=== PATIENT | female | born 1990 | race Caucasian/White ===

== ENCOUNTER → 2024-05-24 | Outpatient (CLI) | payer OTHER, SELFPAY ==
[2024-05-24 12:32] LABS: Absolute Lymphocyte Count 1.03 X10^3/uL (0.83-4.51); Absolute Neutrophil Count 3.9 X10^3/uL (2.0-7.7); Basophil# 0.06 X10^3/uL; Basophil% 1.1 % (0-1); Eosinophils% 1.8 % (0-5); Hematocrit 41.9 % (37-47); Hemoglobin 13.5 g/dL (12.0-15.0); Lymphocyte # 1.03 X10^3/ul (0.83-4.51); Lymphocyte % 18.6 % (19-41); Mean Corp Hgb Conc 32.2 g/dL (32-36); Mean Corpuscular Hgb 29.3 pg (27.0-32.0); Mean Corpuscular Volume 90.9 fL (81-99); Mean Platelet Vol. 10.5 fl (6.2-12.0); Monocyte# 0.49 X10^3/uL; Monocyte% 8.8 % (0-10); NRBC Flagged by Analyzer 0 % (0-5); Neutrophil # 3.86 X10^3/uL (2.7-7.7); Neutrophil % 69.5 % (47-70); Platelet Count 317 K/mm3 (150-450); RBC Distribution Width CV 12.9 % (11.6-14.6); RBC Distribution Width SD 42.6 fl (35.1-43.9); Red Blood Count 4.61 M/mm3 (4.2-5.4); White Blood Count 5.6 K/mm3 (4.4-11.0)
[2024-05-24 13:26] LABS: AST(SGOT) 15 U/L (15-37); Alanine Aminotransfer ALT/SGPT 17 U/L (13-56); Albumin, Serum 4.1 g/dL (3.2-5.0); Alkaline Phosphatase 61 U/L (45-117); Anion Gap 5 (5-15); BUN 5 mg/dL (7-18); BUN/Creat Ratio 7.1 RATIO (10-20); Calcium,Total 9.6 mg/dL (8.5-10.1); Chloride 104 mmol/L (98-107); EST Glomerular Filtration Rate 102 mL/min (>60); Est Glom Filt Rate - Afr Amer 124 mL/min (>60); Globulin 4.2 g/dL (2.2-4.2); Glucose 92 mg/dL (74-106); Potassium 4.2 mmol/L (3.5-5.1); Protein, Total 8.3 g/dL (6.4-8.2); Sodium Level 137 mmol/L (136-145)
[2024-05-25 15:08] LABS: Endomysial Antibody IgA Negative (Negative); Immunoglobulin A 139 mg/dL (87-352); t-Transglutaminase IgA <2 U/mL (0-3)
== END | disposition home or self-care (01) ==
LOC: BIMLAB 09:41
PROVIDERS: PCP Internal Medicine; Referring Provider Internal Medicine; Visit Provider Internal Medicine
DX: R10.13 Epigastric pain (principal)
CPT/HCPCS: 36415; 80053; 82306; 82784; 83516; 84443; 85025; 86255

== ENCOUNTER → 2024-05-26 | Outpatient (CLI) | payer OTHER, SELFPAY ==
[2024-06-02 22:03] LABS: H. PYLORI STOOL AG Negative (Negative)
== END | disposition home or self-care (01) ==
LOC: LABSPEC 11:45
PROVIDERS: PCP Internal Medicine; Referring Provider Internal Medicine; Visit Provider Internal Medicine
DX: R10.13 Epigastric pain (principal)
CPT/HCPCS: 87338

== ENCOUNTER → 2024-07-22 | Outpatient (CLI) | payer OTHER, SELFPAY ==
--- NOTE | 2024-07-22 07:57 | ECHOD_ITS ---
Reason For Study: MURMUR Procedure This was a 2D Doppler, Color Flow transthoracic echocardiogram. Exam performed in department. Left Ventricle Normal LV size. The estimated ejection fraction is 65 %. No evidence for diastolic dysfunction. No regional wall motion abnormalities noted. Right Ventricle Normal RV size. Normal systolic function. Atria The left and right atria are normal. Bubble contrast study is positive for PFO. Mitral Valve There is no mitral valve stenosis. Trivial mitral valve insufficiency. Tricuspid Valve There is no tricuspid stenosis. Trivial tricuspid valve insufficiency. Unable to estimate RV systolic pressure due to insufficient tricuspid regurgitant envelope. Aortic Valve Trisinus/trileaflet aortic valve. There is no aortic stenosis. No aortic valve insufficiency. Pulmonic Valve There is no pulmonic valvular stenosis. No pulmonic valve insufficiency. Great Vessels Normal aortic root. Pericardium/Pleural No pericardial effusion. Medication 22 gauge I.V. with prn adaptor inserted into right arm. Performed a rapid injection of agitated mix of 9 cc saline and 1cc air to assess for atrial septal defect. MMode/2D Measurements & Calculations LVIDd: 5.0 cm IVSd: 0.75 cm LVOT diam: 2.0 cm LVIDs: 2.9 cm LVPWd: 0.75 cm RVDd: 3.4 cm FS: 41.0 % LVOT area: 3.0 cm2 asc Aorta Diam: 2.8 cm LAV(MOD-bp): 53.2 ml LVAd ap4: 28.6 cm2 LAV(MOD-bp) Indexed: 28.0 ml/m2 LVLd ap4: 7.9 cm LAV(MOD-sp2): 59.0 ml EDV(MOD-sp4): 85.0 ml LAV(MOD-sp4): 47.1 ml EDV(sp4-el): 88.1 ml LVAs ap4: 16.5 cm2 LVLs ap4: 6.6 cm ESV(MOD-sp4): 35.0 ml ESV(sp4-el): 35.0 ml EF(MOD-sp4): 58.8 % EF(sp4-el): 60.3 % LVAd ap2: 30.7 cm2 SV(MOD-sp4): 50.0 ml SV(MOD-sp2): 54.3 ml LVLd ap2: 8.2 cm SI(MOD-sp4): 26.3 ml/m2 SI(MOD-sp2): 28.6 ml/m2 EDV(MOD-sp2): 94.0 ml EDV(sp2-el): 96.9 ml LVAs ap2: 18.4 cm2 LVLs ap2: 7.4 cm ESV(MOD-sp2): 39.7 ml ESV(sp2-el): 38.9 ml EF(MOD-sp2): 57.8 % SV(sp4-el): 53.2 ml Ao sinus diam: 2.[address] Junction: 2.3 cm LA dimension(2D): 3.2 cm LA A4 area: 17.6 cm2 RA A4 area: 13.2 cm2 TAPSE: 1.7 cm Time Measurements MV dec time: 0.16 sec Doppler Measurements & Calculations MV E max spencer: 73.3 cm/sec Lat Peak E' Spencer: 18.0 cm/sec Med Peak E' Spencer: 14.0 cm/sec MV A max spencer: 61.0 cm/sec E/E' lat: 4.1 E/E' med: 5.2 MV E/A: 1.2 MV dec slope: 451.2 cm/sec2 Ao V2 max: 118.4 cm/sec LV V1 max: 104.3 cm/sec Ao max P.6 mmHg LV V1 max P.3 mmHg Ao V2 mean: 88.6 cm/sec LV V1 mean P.6 mmHg Ao mean P.5 mmHg LV V1 mean: 76.2 cm/sec Ao V2 VTI: 29.9 cm LV V1 VTI: 24.8 cm AV (velocity ratio): 0.83 TERESA(I,D): 2.5 cm2 TERESA(V,D): 2.6 cm2 SV(LVOT): 74.2 ml PA V2 max: 85.9 cm/sec TR max spencer: 181.8 cm/sec TR max P.2 mmHg ECHO/Echo Complete Interpretation Summary The estimated ejection fraction is 65 %. No evidence for diastolic dysfunction. Bubble contrast study is positive for PFO. Trivial mitral valve insufficiency. Ordering Physician: Maria De Jesus Hunt Referring Physician: Maria De Jesus Hunt Performed By: Jo Farooq, [facility]
== END | disposition home or self-care (01) ==
PROVIDERS: PCP Internal Medicine; Referring Provider Internal Medicine; Visit Provider Internal Medicine
DX: R01.1 Cardiac murmur, unspecified (principal); Z86.79 Personal history of other diseases of the circulatory system
CPT/HCPCS: 93306; A4216

== ENCOUNTER → 2024-11-11 | Outpatient (CLI) | payer OTHER, SELFPAY ==
[2024-11-16 16:09] LABS: HPV APTIMA, High Risk Negative (Negative)
== END | disposition home or self-care (01) ==
LOC: LABSPEC 08:59
PROVIDERS: PCP Internal Medicine; Referring Provider Advanced Practice Midwife; Visit Provider Advanced Practice Midwife
DX: Z12.4 Encounter for screening for malignant neoplasm of cervix (principal)
CPT/HCPCS: 87624; 88175; G0145

== ENCOUNTER → 2025-02-18 | Outpatient (CLI) | payer OTHER, SELFPAY | END | disposition home or self-care (01) | LOC: LABSPEC 11:01 | PROVIDERS: PCP Internal Medicine; Visit Provider Physician Assistant | DX: L60.2 Onychogryphosis (principal) | CPT/HCPCS: 87102; 87206 ==

== ENCOUNTER → 2025-03-10 | Outpatient (CLI) | payer OTHER, SELFPAY | END | disposition home or self-care (01) | LOC: LABSPEC 10:25 | PROVIDERS: PCP Internal Medicine; Referring Provider Nurse Practitioner Family; Visit Provider Nurse Practitioner Family | DX: R35.0 Frequency of micturition (principal) | CPT/HCPCS: 87086; 87088 ==